=== PATIENT | female | born 1995 | race Caucasian/White ===

== ENCOUNTER 2017-04-02 20:14 | Emergency (ER) | payer MEDICAID ==
[2017-04-02 20:51] LABS: BASOPHILS % (AUTO) 0.3 %; HCT - HEMATOCRIT 43.6 % (37.0-47.0); HGB - HEMOGLOBIN 14.8 g/dL (12.0-16.0); LYMPHOCYTES # (AUTO) 0.5 10^3/uL (1.5-3.5); LYMPHOCYTES % (AUTO) 4.1 %; MEAN CORPUSCULAR HEMOGLOBIN 29.8 pg (27.0-31.0); MEAN CORPUSCULAR HGB CONC 33.9 g/dL (32.0-36.0); MEAN CORPUSCULAR VOLUME 88.1 fL (81.0-99.0); MONOCYTES # (AUTO) 0.3 10^3/uL (0.0-1.0); MONOCYTES % (AUTO) 3.1 %; NEUTROPHILS # (AUTO) 10.3 10^3/uL (1.5-6.6); NEUTROPHILS % (AUTO) 92.5 %; RED BLOOD COUNT 4.95 10^6/uL (4.20-5.40); RED CELL DISTRIBUTION WIDTH 13.3 % (12.0-15.0); UNCORRECTED WHITE BLOOD COUNT 11.2 x10^3/uL; WHITE BLOOD COUNT 11.2 x10^3/uL (4.8-10.8)
[2017-04-02 21:06] LABS: ALBUMIN/GLOBULIN RATIO 1.5 (1.0-2.2); BILIRUBIN,TOTAL 1.2 mg/dL (0.2-1.0); CALCIUM 9.7 mg/dL (8.5-10.3); CREATININE 0.9 mg/dL (0.4-1.0); TOTAL PROTEIN 7.4 g/dL (6.7-8.2)
[2017-04-02 21:29] LABS: BILIRUBIN,URINE NEGATIVE (NEGATIVE)
[2017-04-02 21:38] LABS: UA w/ MICROSCOPIC CHARGE YES
[2017-04-02 21:42] LABS: UR CULTURE IF IND NOT INDICATED
--- NOTE | 2017-04-02 21:57 | ED Physician Documentation ---
PD HPI NVD - Stated complaint Stated Complaint: VOMITTING - Chief complaint Chief Complaint: Abd Pain - History obtained from History obtained from: Patient - History of Present Illness Timing - onset: How many hours ago (few hours ago in early afternoon), Today Timing - duration: Hours Timing - details: Abrupt onset (vomited few times and some diarrhea) Associated symptoms: Abdominal pain (cramping), Loss of appetite. No: Fever, Chest pain, Hematemesis, Near syncope / syncope Contributing factors: No: Sick contact, Bad food, Travel, Recent antibiotics Improved by: No: Eating, Vomiting Worsened by: Eating Similar symptoms before: Has not had sx before Recently seen: Not recently seen Review of Systems Constitutional: reports: Myalgias. denies: Fever, Chills Nose: denies: Rhinorrhea / runny nose, Congestion Throat: denies: Sore throat Respiratory: denies: Cough GI: reports: Abdominal Pain (diffusely), Nausea, Vomiting, Diarrhea : denies: Dysuria, Frequency, Discharge, Missed period Skin: denies: Rash, Lesions Neurologic: reports: Generalized weakness. denies: Focal weakness, Numbness, Syncope, Altered mental status, Headache PD PAST MEDICAL HISTORY - Past Medical History Past Medical History: Yes Cardiovascular: None Endocrine/Autoimmune: None GI: None Psych: Depression, Anxiety, ADD/ADHD, Post traumatic stress disorder - Past Surgical History Past Surgical History: No - Present Medications Home Medications: Ambulatory Orders Medication Instructions Recorded Confirmed Aripiprazole [Abilify] 20 mg PO BID 04/02/17 04/02/17 Ondansetron Odt [Zofran] 4 mg TL Q6H PRN #10 tablet 04/02/17 buPROPion [Wellbutrin Sr] 100 mg PO DAILY 04/02/17 04/02/17 - Allergies Allergies/Adverse Reactions: Allergies Allergy/AdvReac Type Severity Reaction Status Date / Time No Known Drug Allergies Allergy Verified 04/02/17 21:31 - Social History Does the pt smoke?: No Smoking Status: Never smoker Does the pt drink ETOH?: No Does the pt have substance abuse?: No - Immunizations Immunizations are current?: Yes - POLST Patient has POLST: No PD ED PE NORMAL - Vitals Vital signs reviewed: Yes (Initiall BP is low.) - General General: Alert and oriented X 3, No acute distress, Well developed/nourished - HEENT HEENT: PERRL (nonictericnonicteric), Pharynx benign. No: Moist mucous membranes - Neck Neck: Supple, no meningeal sign, No adenopathy - Cardiac Cardiac: RRR, No murmur - Respiratory Respiratory: Clear bilaterally - Abdomen Abdomen: Normal bowel sounds, Soft, Non distended, No organomegaly, Other (some diffuse tenderness more upper abd without focality. No percussion nor rebound tenderness. ) Results - Vitals Vitals: Oxygen O2 Source Room air - Labs Labs: Laboratory Tests 04/02/17 04/02/17 04/02/17 20:41 20:41 21:20 WBC 11.2 H RBC 4.95 Hgb 14.8 Hct 43.6 MCV 88.1 MCH 29.8 MCHC 33.9 RDW 13.3 Plt Count 243 MPV 8.0 Neut # 10.3 H Lymph # 0.5 L [place] # 0.3 Eos # 0.0 Baso # 0.0 Absolute Nucleated RBC 0.00 Nucleated RBC % 0.0 Sodium 137 Potassium 4.0 Chloride 100 L Carbon Dioxide 24 Anion Gap 13.0 BUN 15 Creatinine 0.9 Estimated GFR (MDRD) 81 L Glucose 110 H Calcium 9.7 Total Bilirubin 1.2 H AST 22 ALT 19 Alkaline Phosphatase 40 L Total Protein 7.4 Albumin 4.4 Globulin 3.0 Albumin/Globulin Ratio 1.5 Lipase 42 Urine Color YELLOW Urine Clarity HAZY Urine pH 6.0 Ur Specific [place] >=1.030 H Urine Protein NEGATIVE Urine Glucose (UA) NEGATIVE Urine Ketones 40 H Urine Occult Blood NEGATIVE Urine Nitrite NEGATIVE Urine Bilirubin NEGATIVE Urine Urobilinogen 0.2 (NORMAL) Ur Leukocyte Esterase TRACE H Urine RBC 6-10 H Urine WBC 11-25 H Ur Squamous Epith Cells MANY Squamous H Urine Bacteria Few Ur Microscopic Review INDICATED Urine Culture Comments NOT INDICATED PD MEDICAL DECISION MAKING - ED course Complexity details: reviewed results, re-evaluated patient (improved with meds. Taking oral fluids here. BP and heart rate improved. ), considered differential (likely viral GE. Tests are okay at this time. Tender upper abd and not RLQ. ), d/w patient Departure - Departure Disposition: 01 Home, Self Care Clinical Impression: Nausea vomiting and diarrhea, Upper abdominal pain, Dehydration Condition: Stable Record reviewed to determine appropriate education?: Yes Instructions: ED Nausea Vomiting Follow-Up: KEN WILLS MD [Primary Care Provider] - Prescriptions: Ondansetron Odt [Zofran] 4 mg TL Q6H PRN #10 tablet PRN Reason: Nausea / Vomiting Comments: This is likely to be a viral stomach infection in these commonly last a day or so. Use ondansetron if needed for nausea. Tylenol if needed for pains. Small frequent fluids overnight and into tomorrow. Start bland foods such as rice breads or cereals tomorrow in progress as able. Recheck if not improved over the next day or 2. The upper belly pain is likely from vomiting and just irritation of the intestine and stomach. Recheck if this does not improve in a day or 2 or in particular if it gets worse or migrates to the lower right abdomen or any other concerns. Discharge Date/Time: 04/02/17 23:20
[2017-04-02] MEDS ORDERED: KETOROLAC 30 MG/ML VIAL ONE (22:18)
[2017-04-02] MEDS ORDERED: ONDANSETRON 4 MG/2 ML VIAL ONE (22:18)
[2017-04-02] MEDS: ONDANSETRON 4 MG/2 ML VIAL IVP STA (22:22)
[2017-04-02] MEDS: SODIUM CHLORIDE 0.9% 1,000 ML IV ONE (22:22)
[2017-04-02] MEDS: KETOROLAC 60 MG/2 ML VIAL IVP STA (22:22)
[2017-04-02] MEDS ORDERED: ONDANSETRON ODT 4 MG Prepack 2 TL ONE (22:50)
[2017-04-02 23:14] VITALS: BP 101/53
[2017-04-02] MEDS: ONDANSETRON ODT 4 MG Prepack 2 TL PRN (23:15)
== END 2017-04-02 23:20 | disposition home or self-care (01) ==
LOC: ED 20:14
DX: R11.2 Nausea with vomiting, unspecified (principal); R19.7 Diarrhea, unspecified; R10.10 Upper abdominal pain, unspecified; E86.0 Dehydration
CPT/HCPCS: 36415; 80053; 81001; 81003; 83690; 85025; 87086; 96374; 96375; 99284

== ENCOUNTER 2017-07-08 19:27 | Emergency (ER) | payer MEDICAID ==
[2017-07-08 19:34] VITALS: BP 123/68
--- NOTE | 2017-07-08 19:58 | ED Physician Documentation ---
PD HPI UPPER EXT INJURY - Stated complaint Stated Complaint: R HAND/WRIST INJ - Chief complaint Chief Complaint: Ext Problem - History obtained from History obtained from: Patient - History of Present Illness Location: Right, Hand Type of injury: Other (punched a light pole because she was angry) Where injury occurred: Street Timing - onset: How many hours ago (1) Timing - duration: Hours (1) Timing - details: Abrupt onset Pain level max: 5 Pain level now: 3 Improved by: Rest, Ice, Immobilization Worsened by: Moving, Palpating Associated symptoms: Swelling, Discolored (bruising). No: Weakness, Numbness, Tingling Contributing factors: No: Anticoagulated Similar symptoms before: Has not had sx before Recently seen: Not recently seen - Additonal information Additional information: patient is right handed Review of Systems : denies: Now EGA PD PAST MEDICAL HISTORY - Past Medical History Past Medical History: Yes Cardiovascular: None Endocrine/Autoimmune: None GI: None Psych: Depression, Anxiety, ADD/ADHD, Post traumatic stress disorder - Past Surgical History Past Surgical History: No - Present Medications Home Medications: Ambulatory Orders Medication Instructions Recorded Confirmed Aripiprazole [Abilify] 20 mg PO BID 04/02/17 07/08/17 Ondansetron Odt [Zofran] 4 mg TL Q6H PRN #10 tablet 04/02/17 07/08/17 buPROPion [Wellbutrin Sr] 100 mg PO DAILY 04/02/17 07/08/17 - Allergies Allergies/Adverse Reactions: Allergies Allergy/AdvReac Type Severity Reaction Status Date / Time No Known Drug Allergies Allergy Verified 07/08/17 19:33 - Social History Does the pt smoke?: No Smoking Status: Never smoker Does the pt drink ETOH?: No Does the pt have substance abuse?: No - Immunizations Immunizations are current?: Yes - POLST Patient has POLST: No PD ED PE NORMAL - Vitals Vital signs reviewed: Yes - General General: Alert and oriented X 3, No acute distress - HEENT HEENT: Other (dilated pupils) - Derm Derm: Warm and dry - Extremities Extremities: Other (R hand TTP over the 3rd MC. bruising and abrasion to the 3rd MCP joint. NVI. o/w normal exam of the hand and wrist. ) - Neuro Neuro: Alert and oriented X 3 - Psych Psych: Normal mood, Normal affect Results - Vitals Vitals: Vital Signs - 24 hr 07/08/17 19:31 Temperature 36.7 C Heart Rate 89 Respiratory 16 Rate Blood Pressure 123/68 O2 Saturation 96 Oxygen O2 Source Room air - Rads (name of study) R hand xray Radiology: Prelim report reviewed, EMP read contemporaneously, See rad report ( normal. no fracture) PD MEDICAL DECISION MAKING - ED course Complexity details: reviewed results, re-evaluated patient, considered differential, d/w patient ED course: Patient is a 21-year-old female who presents to the emergency department after she punched a light pole with her right hand. No acute findings on x-ray. Declines cleansing of the wound. Tetanus is up-to-date. Warnings of infection and instructions on wound care given at bedside. Will follow up with her doctor. Patient counseled regarding signs and symptoms for which I believe and urgent re-evaluation would be necessary. Patient with good understanding of and agreement to plan and is comfortable going home at this time This document was made in part using voice recognition software. While efforts are made to proofread this document, sound alike and grammatical errors may occur. Departure - Departure Disposition: 01 Home, Self Care Clinical Impression: Contusion of hand Qualifiers: Encounter type: initial encounter Laterality: right Qualified Code(s): S60.221A - Contusion of right hand, initial encounter Condition: Good Instructions: ED Contusion Hand Follow-Up: KEN WILLS MD [Primary Care Provider] - Within 1 week Comments: Return if you worsen. Your xrays are normal today. Discharge Date/Time: 07/08/17 20:32
--- NOTE | 2017-07-08 20:22 | XRAY Preliminary Report ---
Exam: XR HAND 3 VIEW RT IMPRESSION: Normal hand radiography. [facility] SITE ID: [id number]
--- NOTE | 2017-07-08 20:22 | XRAY Report ---
EXAM: RIGHT HAND RADIOGRAPHY EXAM DATE: 07/08/2017 08:16 PM. CLINICAL HISTORY: R hand injury s/p punching a light pole. COMPARISON: None. TECHNIQUE: 3 views. FINDINGS: Bones: Normal. No fractures or bone lesions. Joints: Normal. No subluxations. Soft Tissues: Normal. No soft tissue swelling. IMPRESSION: Normal hand radiography. [facility] Referring Provider Line: [phone] SITE ID: [id number]
== END 2017-07-08 20:32 | disposition home or self-care (01) ==
LOC: ED 19:27
DX: S60.221A Contusion of right hand, initial encounter (principal); S60.511A Abrasion of right hand, initial encounter; W22.09XA Striking against other stationary object, initial encounter; Y92.410 Unspecified street and highway as the place of occurrence of the external cause
CPT/HCPCS: 99282; 99283

== ENCOUNTER 2018-03-16 19:45 | Emergency (ER) | payer MEDICAID ==
[2018-03-16 20:19] LABS: BILIRUBIN,URINE NEGATIVE (NEGATIVE); GLUCOSE, URINE (UA) NEGATIVE (NEGATIVE); KETONES,URINE (UA) NEGATIVE (NEGATIVE); LEUKOCYTE ESTERASE, URINE SMALL (NEGATIVE); NITRITE,URINE NEGATIVE (NEGATIVE); OCCULT BLOOD,URINE TRACE-INTA (NEGATIVE); PROTEIN,URINE NEGATIVE (NEGATIVE); UROBILINOGEN,URINE 0.2 (NORMAL) E.U./dL (NORMAL)
[2018-03-16 20:21] LABS: CLARITY,URINE HAZY (CLEAR)
[2018-03-16 20:22] LABS: HCG UR QUAL NEGATIVE
[2018-03-16 20:24] LABS: BACTERIA,URINE Many /HPF (None Seen); SQUAMOUS EPITHELIAL CELL,UR FEW Squamous (<= Few)
[2018-03-16] MEDS ORDERED: PHENAZOPYRIDINE 100 MG TABLET PO STA (20:29)
[2018-03-16] MEDS ORDERED: SULFAMETH/TRIMETH DS 800/160 MG TABLET PO STA (20:29)
--- NOTE | 2018-03-16 20:32 | ED Physician Documentation ---
PD HPI FEMALE - Stated complaint Stated Complaint: ABD PX - Chief complaint Chief Complaint: Abd Pain - History obtained from History obtained from: Patient - History of Present Illness Timing - onset: How many weeks ago (1) Timing - details: Gradual onset, Still present Associated symptoms: Pelvic pain, Dysuria, Urinary frequency, Hematuria Similar symptoms before: Work up / diagnostics, Treatment Recently seen: Emergency Dept - Additional information Additional information: Patient is a 22 year old female presenting to the emergency department for dysuria, increased frequency and cloudy urine. patient was diagnosed with a uti last week and started on what sounds like keflex. patient's symptoms got better for a little while but then came back so she came in for evaluation. Review of Systems Ten Systems: 10 systems reviewed and negative Constitutional: denies: Fever, Chills : reports: Dysuria, Frequency PD PAST MEDICAL HISTORY - Past Medical History Cardiovascular: None Endocrine/Autoimmune: None GI: None Psych: Depression, Anxiety, ADD/ADHD, Post traumatic stress disorder - Past Surgical History Past Surgical History: No - Present Medications Home Medications: Ambulatory Orders Medication Instructions Recorded Confirmed Aripiprazole [Abilify] 20 mg PO BID 04/02/17 07/08/17 Ondansetron Odt [Zofran] 4 mg TL Q6H PRN #10 tablet 04/02/17 07/08/17 buPROPion [Wellbutrin Sr] 100 mg PO DAILY 04/02/17 07/08/17 Phenazopyridine HCl [Pyridium] 200 mg PO TID PRN #6 tablet 03/16/18 Sulfamethox/Trimeth 800/160 1 each PO BID #14 tablet 03/16/18 [Bactrim Ds 800/160] - Allergies Allergies/Adverse Reactions: Allergies Allergy/AdvReac Type Severity Reaction Status Date / Time No Known Drug Allergies Allergy Verified 03/16/18 20:06 - Social History Does the pt smoke?: No Smoking Status: Never smoker Does the pt drink ETOH?: No Does the pt have substance abuse?: No - Immunizations Immunizations are current?: Yes - POLST Patient has POLST: No PD ED PE NORMAL - Vitals Vital signs reviewed: Yes - General General: Alert and oriented X 3 - HEENT HEENT: Atraumatic - Cardiac Cardiac: RRR - Respiratory Respiratory: No respiratory distress - Abdomen Abdomen: Soft - Derm Derm: Normal color - Extremities Extremities: No deformity - Neuro Eye Opening: Spontaneous Results - Vitals Vitals: Vital Signs - 24 hr 03/16/18 20:06 Temperature 37.0 C Heart Rate 79 Respiratory 18 Rate Blood Pressure 122/76 O2 Saturation 99 Oxygen O2 Source Room air - Labs Labs: Laboratory Tests 03/16/18 20:00 Urine Color YELLOW Urine Clarity HAZY Urine pH 6.0 Ur Specific [place] >=1.030 H Urine Protein NEGATIVE Urine Glucose (UA) NEGATIVE Urine Ketones NEGATIVE Urine Occult Blood TRACE-INTA Urine Nitrite NEGATIVE Urine Bilirubin NEGATIVE Urine Urobilinogen 0.2 (NORMAL) Ur Leukocyte Esterase SMALL H Urine RBC 6-10 H Urine WBC >25 H Ur Squamous Epith Cells FEW Squamous Urine Bacteria Many H Ur Microscopic Review INDICATED Urine Culture Comments INDICATED Urine HCG, Qual NEGATIVE PD MEDICAL DECISION MAKING - ED course Complexity details: reviewed old records, reviewed results, re-evaluated patient, considered differential, d/w patient, d/w family ED course: Patient was seen and examined at bedside. urine was collected and consistent with urinary tract infection. Patient was started on bactrim. Patient required no further work up at this time and was stable for discharge with outpatient follow up. - Sepsis Event Vital Signs: Vital Signs - 24 hr 03/16/18 20:06 Temperature 37.0 C Heart Rate 79 Respiratory 18 Rate Blood Pressure 122/76 O2 Saturation 99 Oxygen O2 Source Room air Departure - Departure Disposition: 01 Home, Self Care Clinical Impression: Urinary tract infection Condition: Good Instructions: ED UTI Cystitis Female Follow-Up: primary,care provider [Other] Prescriptions: Phenazopyridine HCl [Pyridium] 200 mg PO TID PRN #6 tablet PRN Reason: dysuria Sulfamethox/Trimeth 800/160 [Bactrim Ds 800/160] 1 each PO BID #14 tablet Comments: Your symptoms today are being caused by a urinary tract infection. we are going to try another antibiotic. You will be called if this antibiotic will not work for the bacteria and a new one will be prescribed. you should increase you fluid intake as well during the infection stage.
[2018-03-16 20:39] VITALS: BP 120/74
== END 2018-03-16 20:37 | disposition home or self-care (01) ==
LOC: ED 19:45
DX: N39.0 Urinary tract infection, site not specified (principal)
CPT/HCPCS: 81001; 81025; 87086; 99283; A9270; 81003

== ENCOUNTER 2018-05-24 00:13 | Emergency (ER) | payer MEDICAID ==
[2018-05-24 00:23] VITALS: BP 119/75
--- NOTE | 2018-05-24 01:00 | ED Physician Documentation ---
History of Present Illness - Stated complaint Stated Complaint: JAW PAIN - Chief complaint Chief Complaint: Heent - History obtained from History obtained from: Patient - History of Present Illness Timing: Today (worse), How many years ago (2) Pain level max: 7 Pain level now: 0 - Additonal information Additional information: 22-year-old female with no past medical or surgical history here complaining of jaw pain which started 2 years ago after her molar tooth was pulled out. She had seen her dentist 3 months ago for cleaning but had forgotten to ask about the jaw. Patient stated The pain has been on and off the past 2 weeks and today the pain was worse. She has not taken medication. Patient states she likes chewing on gum.Denies any recent trauma in her mouth or jaw. Review of Systems Ten Systems: 10 systems reviewed and negative Constitutional: denies: Fever, Chills Ears: denies: Ear pain Nose: denies: Rhinorrhea / runny nose Throat: denies: Dental pain / toothache, Oral lesions / sores, Sore throat, Swollen tonsils Musculoskeletal: denies: Neck pain PD PAST MEDICAL HISTORY - Past Medical History Cardiovascular: None Endocrine/Autoimmune: None GI: None Psych: Depression, Anxiety, ADD/ADHD, Post traumatic stress disorder - Past Surgical History Past Surgical History: No - Present Medications Home Medications: Ambulatory Orders Medication Instructions Recorded Confirmed Aripiprazole [Abilify] 20 mg PO BID 04/02/17 07/08/17 Ondansetron Odt [Zofran] 4 mg TL Q6H PRN #10 tablet 04/02/17 07/08/17 buPROPion [Wellbutrin Sr] 100 mg PO DAILY 04/02/17 07/08/17 Phenazopyridine HCl [Pyridium] 200 mg PO TID PRN #6 tablet 03/16/18 Sulfamethox/Trimeth 800/160 1 each PO BID #14 tablet 03/16/18 [Bactrim Ds 800/160] - Allergies Allergies/Adverse Reactions: Allergies Allergy/AdvReac Type Severity Reaction Status Date / Time No Known Drug Allergies Allergy Verified 03/16/18 20:06 - Social History Does the pt smoke?: No Smoking Status: Never smoker Does the pt drink ETOH?: No Does the pt have substance abuse?: No - Immunizations Immunizations are current?: Yes - POLST Patient has POLST: No PD ED PE NORMAL - Vitals Vital signs reviewed: Yes - General General: Alert and oriented X 3, No acute distress, Well developed/nourished - HEENT HEENT: Atraumatic, Ears normal, Moist mucous membranes, Pharynx benign, Dentition benign, Other (TMJs intact but with a slight click with opening and closing. No tenderness to palpation. No erythema in the buccal mucosa.) - Neck Neck: Supple, no meningeal sign, No adenopathy - Cardiac Cardiac: RRR, No murmur - Respiratory Respiratory: No respiratory distress, Clear bilaterally - Abdomen Abdomen: Normal bowel sounds, Soft, Non tender, Non distended - Back Back: No CVA TTP - Derm Derm: Warm and dry - Extremities Extremities: No deformity - Neuro Neuro: Alert and oriented X 3 - Psych Psych: Normal mood, Normal affect Results - Vitals Vitals: Vital Signs - 24 hr 05/24/18 00:17 Temperature 36.8 C Heart Rate 85 Respiratory 18 Rate Blood Pressure 119/75 O2 Saturation 97 Oxygen O2 Source Room air - Labs Labs: Laboratory Tests 05/24/18 00:51 Ur Specific [place] 1.025 Urine HCG, Qual NEGATIVE PD MEDICAL DECISION MAKING - ED course Complexity details: re-evaluated patient ( patient informed of negative test and she expressed positive feeling about this. She was instructed to follow-up with her dentist and get a referral for an [facility]. She was instructed to avoid chewing gum and eating hard food.), considered differential (Dental caries, TMJ, overusage,), d/w patient Departure - Departure Disposition: Home, Self Care Clinical Impression: Chronic jaw pain TMJ arthralgia Qualifiers: Laterality: bilateral Qualified Code(s): M26.623 - Arthralgia of bilateral temporomandibular joint Condition: Stable Instructions: TMD Pain Relief Methods, ED TMJ Syndrome Comments: Call your dentist for reevaluation and referral to a specialist called [facility]MF. Avoid chewing gum and eating hard food. OTC Tylenol or Motrin for pain. If worse return to the emergency room.
[2018-05-24 01:11] LABS: HCG UR QUAL NEGATIVE
== END 2018-05-24 02:03 | disposition home or self-care (01) ==
LOC: ED 00:13
DX: M26.623 Arthralgia of bilateral temporomandibular joint (principal); G89.29 Other chronic pain
CPT/HCPCS: 81025; 99283

== ENCOUNTER 2018-06-28 19:07 | Emergency (ER) | payer MEDICAID ==
[2018-06-28] MEDS ORDERED: HYDROcod/ACETAM 5/325 MG TABLET PO STA (19:19)
--- NOTE | 2018-06-28 19:21 | ED Physician Documentation ---
PD HPI ABD PAIN - Stated complaint Stated Complaint: ABD PX - Chief complaint Chief Complaint: Abd Pain - History obtained from History obtained from: Patient - History of Present Illness Timing - onset: Other (She has several weeks of periumbilical pain that waxes and wanes. It is a little worse after eating. She had one episode of vomiting a few days ago but it was after a large meal. Her bowel movements have been normal. It is associated with urinary frequency but no dysuria. She feels like this is similar to a UTI she had a few months ago that resolved quickly with oral antibiotics. She denies fevers. No history of abdominal surgeries.) Review of Systems Constitutional: denies: Fever, Chills GI: reports: Abdominal Pain, Nausea, Vomiting. denies: Constipation, Diarrhea : reports: Frequency. denies: Dysuria PD PAST MEDICAL HISTORY - Past Medical History Past Medical History: No Cardiovascular: None Respiratory: None Neuro: None Endocrine/Autoimmune: None GI: None PATROL LADY: None : None HEENT: None Psych: Depression, Anxiety, ADD/ADHD, Post traumatic stress disorder Musculoskeletal: None Derm: None - Past Surgical History Past Surgical History: No - Present Medications Home Medications: Ambulatory Orders Medication Instructions Recorded Confirmed Aripiprazole [Abilify] 20 mg PO BID 04/02/17 07/08/17 Ondansetron Odt [Zofran] 4 mg TL Q6H PRN #10 tablet 04/02/17 07/08/17 buPROPion [Wellbutrin Sr] 100 mg PO DAILY 04/02/17 07/08/17 Phenazopyridine HCl [Pyridium] 200 mg PO TID PRN #6 tablet 03/16/18 Sulfamethox/Trimeth 800/160 1 each PO BID #14 tablet 03/16/18 [Bactrim Ds 800/160] Sulfamethoxazole/Trimethoprim 1 each PO BID #10 tablet 06/28/18 [Sulfamethoxazole-Tmp Ds Tablet] - Allergies Allergies/Adverse Reactions: Allergies Allergy/AdvReac Type Severity Reaction Status Date / Time No Known Drug Allergies Allergy Verified 06/28/18 19:11 - Social History Does the pt smoke?: No Smoking Status: Never smoker Does the pt drink ETOH?: No Does the pt have substance abuse?: No - Immunizations Immunizations are current?: Yes - POLST Patient has POLST: No PD ED PE NORMAL - Vitals Vital signs reviewed: Yes - General General: Alert and oriented X 3, No acute distress - Cardiac Cardiac: RRR, No murmur - Respiratory Respiratory: No respiratory distress, Clear bilaterally - Abdomen Abdomen: Normal bowel sounds, Soft, Other (Mild left-sided abdominal tenderness without surgical signs) - Back Back: No CVA TTP, No spinal TTP - Derm Derm: Normal color, Warm and dry - Extremities Extremities: No edema, No calf tenderness / cord - Neuro Neuro: Alert and oriented X 3, Normal speech Results - Vitals Vitals: Vital Signs - 24 hr 06/28/18 19:08 Temperature 36.0 C L Heart Rate 92 Respiratory 15 Rate Blood Pressure 101/81 H O2 Saturation 98 Oxygen O2 Source Room air - Labs Labs: Laboratory Tests 06/28/18 06/28/18 06/28/18 19:26 19:35 19:35 WBC 7.4 RBC 4.75 Hgb 14.1 Hct 42.5 MCV 89.5 MCH 29.7 MCHC 33.2 RDW 13.0 Plt Count 246 MPV 8.4 Neut # (Auto) 4.0 Lymph # (Auto) 2.7 [place] # (Auto) 0.5 Eos # (Auto) 0.1 Baso # (Auto) 0.1 Absolute Nucleated RBC 0.01 Nucleated RBC % 0.1 Sodium 138 Potassium 3.7 Chloride 104 Carbon Dioxide 26 Anion Gap 8.0 BUN 12 Creatinine 0.8 Estimated GFR (MDRD) 91 Glucose 96 Calcium 9.3 Total Bilirubin 0.4 AST 17 ALT 15 Alkaline Phosphatase 44 Total Protein 7.4 Albumin 4.1 Globulin 3.3 Albumin/Globulin Ratio 1.2 Lipase 33 Urine Color YELLOW Urine Clarity CLEAR Urine pH 6.0 Ur Specific [place] 1.025 Urine Protein NEGATIVE Urine Glucose (UA) NEGATIVE Urine Ketones NEGATIVE Urine Occult Blood NEGATIVE Urine Nitrite NEGATIVE Urine Bilirubin NEGATIVE Urine Urobilinogen 0.2 (NORMAL) Ur Leukocyte Esterase TRACE H Urine RBC 0-5 Urine WBC 4-5 Ur Squamous Epith Cells MOD Squamous H Urine Bacteria None Seen Ur Microscopic Review INDICATED Urine Culture Comments NOT INDICATED Urine HCG, Qual NEGATIVE PD MEDICAL DECISION MAKING - ED course ED course: 22-year-old with abdominal pain and urinary frequency. Previously diagnosed with similar symptoms as UTI and resolved quickly with antibiotics. She had a benign examination and a soft urine but her blood work was negative. We will trial antibiotics and close follow-up precautions were given. Departure - Departure Disposition: Home, Self Care Clinical Impression: Urinary tract infection Qualifiers: Urinary tract infection type: acute cystitis Hematuria presence: without hematuria Qualified Code(s): N30.00 - Acute cystitis without hematuria Abdominal pain Qualifiers: Abdominal location: generalized Qualified Code(s): R10.84 - Generalized abdominal pain Condition: Good Record reviewed to determine appropriate education?: Yes Instructions: ED Abdominal Pain Unkn Cause Prescriptions: Sulfamethoxazole/Trimethoprim [Sulfamethoxazole-Tmp Ds Tablet] 1 each PO BID #10 tablet Comments: Call your doctor to arrange a follow-up appointment, make the next available appointment. In the interim, return anytime if worse or if new symptoms develop.
[2018-06-28 19:33] LABS: BILIRUBIN,URINE NEGATIVE (NEGATIVE); GLUCOSE, URINE (UA) NEGATIVE (NEGATIVE); KETONES,URINE (UA) NEGATIVE (NEGATIVE); LEUKOCYTE ESTERASE, URINE TRACE (NEGATIVE); NITRITE,URINE NEGATIVE (NEGATIVE); OCCULT BLOOD,URINE NEGATIVE (NEGATIVE); PROTEIN,URINE NEGATIVE (NEGATIVE); UROBILINOGEN,URINE 0.2 (NORMAL) E.U./dL (NORMAL)
[2018-06-28 19:34] LABS: CLARITY,URINE CLEAR (CLEAR)
[2018-06-28 19:35] LABS: HCG UR QUAL NEGATIVE
[2018-06-28 19:42] LABS: BASOPHILS # (AUTO) 0.1 10^3/uL (0.0-0.1); EOSINOPHILS # (AUTO) 0.1 10^3/uL (0.0-0.7); EOSINOPHILS % (AUTO) 1.4 %; HGB - HEMOGLOBIN 14.1 g/dL (12.0-16.0); LYMPHOCYTES # (AUTO) 2.7 10^3/uL (1.5-3.5); LYMPHOCYTES % (AUTO) 36.4 %; MEAN CORPUSCULAR HEMOGLOBIN 29.7 pg (27.0-31.0); MEAN CORPUSCULAR HGB CONC 33.2 g/dL (32.0-36.0); MEAN CORPUSCULAR VOLUME 89.5 fL (81.0-99.0); MEAN PLATELET VOLUME 8.4 fL (7.9-10.8); MONOCYTES # (AUTO) 0.5 10^3/uL (0.0-1.0); MONOCYTES % (AUTO) 7.3 %; NEUTROPHILS % (AUTO) 53.9 %; PLT - PLATELET COUNT 246 10^3/uL (130-450); RED BLOOD COUNT 4.75 10^6/uL (4.20-5.40); WHITE BLOOD COUNT 7.4 x10^3/uL (4.8-10.8)
[2018-06-28 19:56] LABS: ALBUMIN 4.1 g/dL (3.2-5.5); ALBUMIN/GLOBULIN RATIO 1.2 (1.0-2.2); BILIRUBIN,TOTAL 0.4 mg/dL (0.2-1.0); CALCIUM 9.3 mg/dL (8.5-10.3); CREATININE 0.8 mg/dL (0.4-1.0); TOTAL PROTEIN 7.4 g/dL (6.7-8.2)
[2018-06-28 19:58] LABS: BACTERIA,URINE None Seen /HPF (None Seen); RBC,URINE 0-5 /HPF (0-5); SQUAMOUS EPITHELIAL CELL,UR MOD Squamous (<= Few)
[2018-06-28] MEDS ORDERED: SULFAMETH/TRIMETH DS 800/160 MG TABLET PO STA (20:20)
[2018-06-28 20:27] VITALS: BP 107/57
== END 2018-06-28 20:28 | disposition home or self-care (01) ==
LOC: ED 19:07
DX: N30.00 Acute cystitis without hematuria (principal); R10.84 Generalized abdominal pain
CPT/HCPCS: 36415; 80053; 81001; 81025; 83690; 85025; 99283; A9270; 81003; 87086

== ENCOUNTER 2018-07-01 06:44 | Emergency (ER) | payer MEDICAID ==
[2018-07-01 07:19] LABS: BILIRUBIN,URINE NEGATIVE (NEGATIVE); GLUCOSE, URINE (UA) NEGATIVE (NEGATIVE); KETONES,URINE (UA) NEGATIVE (NEGATIVE); LEUKOCYTE ESTERASE, URINE SMALL (NEGATIVE); NITRITE,URINE NEGATIVE (NEGATIVE); OCCULT BLOOD,URINE NEGATIVE (NEGATIVE); PROTEIN,URINE NEGATIVE (NEGATIVE); UROBILINOGEN,URINE 0.2 (NORMAL) E.U./dL (NORMAL)
[2018-07-01 07:24] LABS: CLARITY,URINE CLEAR (CLEAR); HCG UR QUAL NEGATIVE
[2018-07-01 07:41] LABS: BACTERIA,URINE Rare /HPF (None Seen); RBC,URINE 0-5 /HPF (0-5); SQUAMOUS EPITHELIAL CELL,UR MOD Squamous (<= Few)
--- NOTE | 2018-07-01 07:42 | ED Physician Documentation ---
PD HPI ABD PAIN - Stated complaint Stated Complaint: STOMACH PAIN - Chief complaint Chief Complaint: Abd Pain - History obtained from History obtained from: Patient - History of Present Illness Timing - onset: How many days ago (3) Timing - duration: Days (3) Timing - details: Gradual onset, Still present Quality: Sharp, Pain Location: Epigastric, Periumbilical Improved by: Laying still Worsened by: Eating, Position, Palpation Associated symptoms: Nausea, Vomiting. No: Diarrhea, Constipation, Dysuria, Chest pain, Dizzy, Near syncope / syncope Similar symptoms before: Diagnosis (UTI) Recently seen: Emergency Dept - Additional information Additional information: 22-year-old female with history of autism spectrum disorder and ADHD is a poor historian but relates a story of abdominal pain that has been undulating over the past 3 days. She states that on she vomited and following that she has developed intermittent abdominal pain. She states it is worse if she eats spicy food. She denies prior episodes of similar pain and at the same time indicates that when she has had this pain previously has been diagnosis urinary tract infection. Review of Systems Constitutional: denies: Fever, Myalgias Eyes: denies: Decreased vision Ears: denies: Ear pain Nose: denies: Congestion Throat: denies: Oral lesions / sores Cardiac: denies: Chest pain / pressure, Palpitations Respiratory: denies: Dyspnea, Cough GI: reports: Abdominal Pain, Nausea, Vomiting : denies: Dysuria, Frequency Skin: denies: Rash Musculoskeletal: denies: Neck pain, Back pain Neurologic: denies: Generalized weakness, Focal weakness, Numbness PD PAST MEDICAL HISTORY - Past Medical History Past Medical History: Yes Cardiovascular: None Respiratory: None Neuro: None Endocrine/Autoimmune: None GI: None [employer]GER [employer]: None : None HEENT: None Psych: Depression, Anxiety, ADD/ADHD, Post traumatic stress disorder Musculoskeletal: None Derm: None - Past Surgical History Past Surgical History: No - Present Medications Home Medications: Ambulatory Orders Medication Instructions Recorded Confirmed Aripiprazole [Abilify] 20 mg PO BID 04/02/17 07/08/17 Ondansetron Odt [Zofran] 4 mg TL Q6H PRN #10 tablet 04/02/17 07/08/17 buPROPion [Wellbutrin Sr] 100 mg PO DAILY 04/02/17 07/08/17 Phenazopyridine HCl [Pyridium] 200 mg PO TID PRN #6 tablet 03/16/18 Sulfamethox/Trimeth 800/160 1 each PO BID #14 tablet 03/16/18 [Bactrim Ds 800/160] Sulfamethoxazole/Trimethoprim 1 each PO BID #10 tablet 06/28/18 [Sulfamethoxazole-Tmp Ds Tablet] - Allergies Allergies/Adverse Reactions: Allergies Allergy/AdvReac Type Severity Reaction Status Date / Time No Known Drug Allergies Allergy Verified 07/01/18 06:52 - Social History Does the pt smoke?: No Smoking Status: Never smoker Does the pt drink ETOH?: No Does the pt have substance abuse?: No - Immunizations Immunizations are current?: Yes - POLST Patient has POLST: No PD ED PE NORMAL - Vitals Vital signs reviewed: Yes (normal ) - General General: No acute distress, Well developed/nourished - HEENT HEENT: Atraumatic, PERRL, EOMI - Neck Neck: Supple, no meningeal sign, No bony TTP - Cardiac Cardiac: RRR, No murmur - Respiratory Respiratory: No respiratory distress, Clear bilaterally - Abdomen Abdomen: Normal bowel sounds, Soft, Non distended, No organomegaly, Other (mild RUQ tenderness to palpation ) - Back Back: No CVA TTP, No spinal TTP - Derm Derm: Normal color, Warm and dry, No rash - Extremities Extremities: No deformity, No edema - Neuro Neuro: Alert and oriented X 3, neon sign erector 2-12 intact, No motor deficit, No sensory deficit, Normal speech Eye Opening: Spontaneous Motor: Obeys Commands Verbal: Oriented GCS Score: 15 - Psych Psych: Normal mood, Normal affect Results - Vitals Vitals: Vital Signs - 24 hr 07/01/18 06:50 Temperature 36.6 C Heart Rate 81 Respiratory 17 Rate Blood Pressure 125/66 O2 Saturation 96 Oxygen O2 Source Room air - Labs Labs: Laboratory Tests 07/01/18 07/01/18 07/01/18 07:10 07:49 07:49 WBC 5.5 RBC 4.76 Hgb 14.4 Hct 42.1 MCV 88.5 MCH 30.3 MCHC 34.2 RDW 13.1 Plt Count 231 MPV 8.1 Neut # (Auto) 3.1 Lymph # (Auto) 1.8 Gates # (Auto) 0.5 Eos # (Auto) 0.1 Baso # (Auto) 0.0 Absolute Nucleated RBC 0.01 Nucleated RBC % 0.1 Sodium 137 Potassium 3.6 Chloride 102 Carbon Dioxide 23 Anion Gap 12.0 BUN 13 Creatinine 0.9 Estimated GFR (MDRD) 80 L Glucose 102 H Calcium 9.3 Total Bilirubin 0.5 AST 19 ALT 14 Alkaline Phosphatase 41 L Total Protein 7.4 Albumin 4.4 Globulin 3.0 Albumin/Globulin Ratio 1.5 Lipase 32 Urine Color YELLOW Urine Clarity CLEAR Urine pH 6.0 Ur Specific [place] 1.015 Urine Protein NEGATIVE Urine Glucose (UA) NEGATIVE Urine Ketones NEGATIVE Urine Occult Blood NEGATIVE Urine Nitrite NEGATIVE Urine Bilirubin NEGATIVE Urine Urobilinogen 0.2 (NORMAL) Ur Leukocyte Esterase SMALL H Urine RBC 0-5 Urine WBC 4-5 Ur Squamous Epith Cells MOD Squamous H Urine Bacteria Rare Ur Microscopic Review INDICATED Urine Culture Comments NOT INDICATED Urine HCG, Qual NEGATIVE - Rads (name of study) GB ultrasound Radiology: Prelim report reviewed (Impression: 1. No cholelithiasis or cholecystitis. No hydronephrosis or renal calculus in the right kidney.), EMP read indepedently, See rad report PD MEDICAL DECISION MAKING - ED course Complexity details: considered differential, d/w patient ED course: 22-year-old female with epigastric abdominal pain has a nonfocal examination with the exception of some mild right upper quadrant tenderness on initial evaluation. Her symptoms resolved here in the emergency department she has a negative workup. She is a poor historian and unable to give specific details as to clues about underlying etiology. She has no symptoms now. Departure - Departure Disposition: 01 Home, Self Care Clinical Impression: Upper abdominal pain Condition: Stable Instructions: ED Abdominal Pain Unkn Cause Follow-Up: Hang Lopez PA-C [Primary Care Provider] -
[2018-07-01 07:56] LABS: BASOPHILS % (AUTO) 0.7 %; EOSINOPHILS # (AUTO) 0.1 10^3/uL (0.0-0.7); HGB - HEMOGLOBIN 14.4 g/dL (12.0-16.0); LYMPHOCYTES # (AUTO) 1.8 10^3/uL (1.5-3.5); LYMPHOCYTES % (AUTO) 33.7 %; MEAN CORPUSCULAR HEMOGLOBIN 30.3 pg (27.0-31.0); MEAN CORPUSCULAR HGB CONC 34.2 g/dL (32.0-36.0); MEAN CORPUSCULAR VOLUME 88.5 fL (81.0-99.0); MEAN PLATELET VOLUME 8.1 fL (7.9-10.8); MONOCYTES # (AUTO) 0.5 10^3/uL (0.0-1.0); MONOCYTES % (AUTO) 8.6 %; NEUTROPHILS # (AUTO) 3.1 10^3/uL (1.5-6.6); PLT - PLATELET COUNT 231 10^3/uL (130-450); RED BLOOD COUNT 4.76 10^6/uL (4.20-5.40); RED CELL DISTRIBUTION WIDTH 13.1 % (12.0-15.0); WHITE BLOOD COUNT 5.5 x10^3/uL (4.8-10.8)
[2018-07-01 08:13] LABS: ALBUMIN 4.4 g/dL (3.2-5.5); ALBUMIN/GLOBULIN RATIO 1.5 (1.0-2.2); BILIRUBIN,TOTAL 0.5 mg/dL (0.2-1.0); CALCIUM 9.3 mg/dL (8.5-10.3); CREATININE 0.9 mg/dL (0.4-1.0); TOTAL PROTEIN 7.4 g/dL (6.7-8.2)
--- NOTE | 2018-07-01 09:03 | Ultrasound Report ---
Reason: RUQ pain in episodes X 3 d Procedure Date: 07/01/2018 Accession Number: [id number] / [id number] Procedure: US - Abdomen Limited CPT Code: FULL RESULT: EXAM: ABDOMEN ULTRASOUND LIMITED, RUQ EXAM DATE: 07/01/2018 08:50 AM. CLINICAL HISTORY: RUQ pain in episodes X 3 d. COMPARISON: None. TECHNIQUE: Real-time scanning was performed with static images obtained. FINDINGS: Liver: Normal in size and echotexture. 15.1 cm. Main portal vein flow: Hepatopetal. Gallbladder: Normal. No stones, wall thickening, or sonographic Garza's sign. Biliary System: CBD measures 3 mm. No intrahepatic or extrahepatic ductal dilatation. Other: The right kidney measures up to 10.5 cm in length. No hydronephrosis. IMPRESSION: 1. No cholelithiasis or cholecystitis. 2. No hydronephrosis or renal calculus in the right kidney. [facility]
[2018-07-01 10:33] VITALS: BP 138/90
== END 2018-07-01 09:52 | disposition home or self-care (01) ==
LOC: ED 06:44
DX: R10.11 Right upper quadrant pain (principal); F84.0 Autistic disorder
CPT/HCPCS: 36415; 76705; 80053; 81001; 81003; 81025; 83690; 85025; 87086; 99283

== ENCOUNTER 2018-08-20 15:02 | Emergency (ER) | payer OTHER, MEDICAID ==
[2018-08-20 15:10] VITALS: BP 131/78
[2018-08-20] MEDS ORDERED: AZITHROMYCIN 250 MG TABLET PO STA (15:53)
[2018-08-20] MEDS ORDERED: metroNIDAZOLE 250 MG TABLET PO STA (15:54)
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
[2018-08-20 16:49] LABS: HCG,QUALITATIVE BLOOD NEGATIVE
[2018-08-21 12:47] LABS: HEPATITIS C ANTIBODY NON-REACTIVE (NON-REACTIVE)
[2018-08-21 14:21] LABS: HIV AG/AB 4TH GEN NON-REACTIVE (NON-REACTIVE)
== END 2018-08-20 18:55 | disposition home or self-care (01) ==
LOC: ED 15:02
DX: Z04.41 Encounter for examination and observation following alleged adult rape (principal); R03.0 Elevated blood-pressure reading, without diagnosis of hypertension
CPT/HCPCS: 0133C; 36415; 84703; 86317; 86803; 87389; 99283; A9270

== ENCOUNTER 2018-12-02 20:55 | Emergency (ER) | payer MEDICAID, OTHER ==
[2018-12-02 21:03] VITALS: BP 123/70
--- NOTE | 2018-12-02 21:08 | ED Physician Documentation ---
PD HPI FEMALE - Stated complaint Stated Complaint: FEM - Chief complaint Chief Complaint: UTI - History obtained from History obtained from: Patient PD PAST MEDICAL HISTORY - Past Medical History Cardiovascular: None Respiratory: None Neuro: None Endocrine/Autoimmune: None GI: None [employer] INSURANCE SALES AGENT: None : None HEENT: None Psych: Depression, Anxiety, ADD/ADHD, Post traumatic stress disorder Musculoskeletal: None Derm: None - Past Surgical History Past Surgical History: No - Present Medications Home Medications: Ambulatory Orders Medication Instructions Recorded Confirmed Aripiprazole [Abilify] 20 mg PO BID 04/02/17 12/02/18 buPROPion [Wellbutrin Sr] 100 mg PO DAILY 04/02/17 12/02/18 - Allergies Allergies/Adverse Reactions: Allergies Allergy/AdvReac Type Severity Reaction Status Date / Time No Known Drug Allergies Allergy Verified 12/02/18 21:03 - Social History Does the pt smoke?: No Smoking Status: Never smoker Does the pt drink ETOH?: No Does the pt have substance abuse?: No - Immunizations Immunizations are current?: Yes - POLST Patient has POLST: No Results - Vitals Vitals: Vital Signs - 24 hr 12/02/18 20:58 Temperature 36.4 C L Heart Rate 91 Respiratory 16 Rate Blood Pressure 123/70 O2 Saturation 99 Oxygen O2 Source Room air
== END 2018-12-02 21:11 | disposition left against medical advice (07) ==
LOC: ED 20:55
DX: Z53.21 Procedure and treatment not carried out due to patient leaving prior to being seen by health care provider (principal)

== ENCOUNTER 2019-09-11 10:36 | Outpatient (CLI) | payer MEDICAID ==
--- NOTE | 2019-09-12 01:23 | XRAY Report ---
Reason: LEFT FOOT PAIN Procedure Date: 09/11/2019 Accession Number: [id number] / [id number] Procedure: XRN - Foot 3 View LT CPT Code: Final Report FULL RESULT: EXAM: LEFT FOOT RADIOGRAPHY EXAM DATE: 09/11/2019 10:52 AM. CLINICAL HISTORY: LEFT FOOT PAIN. COMPARISON: None. TECHNIQUE: 3 views. FINDINGS: Bones: No acute fractures or suspicious bone lesions. Joints: No subluxations. Soft Tissues: Unremarkable. IMPRESSION: No acute radiographic abnormalities. RADIA
== END 2019-09-11 10:37 | disposition home or self-care (01) ==
LOC: DI.N 10:36
PROVIDERS: ATTEND Family Medicine
DX: M79.672 Pain in left foot (principal)

== ENCOUNTER 2019-10-27 08:00 | Outpatient (CLI) | payer MEDICAID ==
[2019-10-27 18:07] LABS: BASOPHILS # (AUTO) 0.1 10^3/uL (0.0-0.1); BASOPHILS % (AUTO) 0.8 %; EOSINOPHILS # (AUTO) 0.1 10^3/uL (0.0-0.7); EOSINOPHILS % (AUTO) 1.8 %; HGB - HEMOGLOBIN 14.2 g/dL (12.0-16.0); LYMPHOCYTES # (AUTO) 2.7 10^3/uL (1.5-3.5); MEAN CORPUSCULAR HGB CONC 31.2 g/dL (32.0-36.0); MEAN CORPUSCULAR VOLUME 89.6 fL (81.0-99.0); MONOCYTES # (AUTO) 0.5 10^3/uL (0.0-1.0); MONOCYTES % (AUTO) 7.4 %; NEUTROPHILS # (AUTO) 3.1 10^3/uL (1.5-6.6); NEUTROPHILS % (AUTO) 47.7 %; PLT - PLATELET COUNT 257 10^3/uL (130-450); RED BLOOD COUNT 5.08 10^6/uL (4.20-5.40); RED CELL DISTRIBUTION WIDTH 13.7 % (12.0-15.0); WHITE BLOOD COUNT 6.5 x10^3/uL (4.8-10.8)
[2019-10-27 18:28] LABS: ALBUMIN/GLOBULIN RATIO 1.7 (1.0-2.2); BILIRUBIN,TOTAL 0.9 mg/dL (0.2-1.0); CALCIUM 9.8 mg/dL (8.5-10.3); CREATININE 0.6 mg/dL (0.4-1.0); TOTAL PROTEIN 7.9 g/dL (6.7-8.2)
[2019-10-27 18:33] LABS: PARTIAL THROMBOPLASTIN TIME 26.8 secs (24.9-33.3)
[2019-10-27 18:48] LABS: INR 1.1 (0.8-1.2); PT - PROTHROMBIN TIME 12.1 secs (9.9-12.6)
== END 2019-10-27 23:59 | disposition home or self-care (01) ==
LOC: LAB.WCP 08:00
PROVIDERS: ATTEND Physician Assistant Medical
DX: R23.8 Other skin changes (principal)
CPT/HCPCS: 36415; 80053; 82728; 83540; 84466; 85025; 85610; 85730

== ENCOUNTER 2021-05-24 13:05 | Outpatient (CLI) | payer MEDICAID ==
[2021-05-24 18:21] LABS: BASOPHILS # (AUTO) 0.1 10^3/uL (0.0-0.1); BASOPHILS % (AUTO) 0.8 %; EOSINOPHILS # (AUTO) 0.1 10^3/uL (0.0-0.7); EOSINOPHILS % (AUTO) 1.4 %; HCT - HEMATOCRIT 45.7 % (37.0-47.0); HGB - HEMOGLOBIN 15.1 g/dL (12.0-16.0); LYMPHOCYTES # (AUTO) 2.2 10^3/uL (1.5-3.5); LYMPHOCYTES % (AUTO) 28.7 %; MEAN CORPUSCULAR HEMOGLOBIN 30.4 pg (27.0-31.0); MEAN CORPUSCULAR VOLUME 92.1 fL (81.0-99.0); MEAN PLATELET VOLUME 10.8 fL (7.9-10.8); MONOCYTES # (AUTO) 0.6 10^3/uL (0.0-1.0); MONOCYTES % (AUTO) 7.9 %; NEUTROPHILS # (AUTO) 4.8 10^3/uL (1.5-6.6); NEUTROPHILS % (AUTO) 61.1 %; PLT - PLATELET COUNT 259 10^3/uL (130-450); RED BLOOD COUNT 4.96 10^6/uL (4.20-5.40); RED CELL DISTRIBUTION WIDTH 12.8 % (12.0-15.0); WHITE BLOOD COUNT 7.8 x10^3/uL (4.8-10.8)
[2021-05-24 18:34] LABS: ALBUMIN 5.1 g/dL (3.2-5.5); ALBUMIN/GLOBULIN RATIO 1.9 (1.0-2.2); BILIRUBIN,TOTAL 1.1 mg/dL (0.2-1.0); CREATININE 0.6 mg/dL (0.4-1.0); POTASSIUM 3.8 mmol/L (3.5-5.0); TOTAL PROTEIN 7.8 g/dL (6.7-8.2)
[2021-05-24 18:58] LABS: BILIRUBIN,URINE NEGATIVE (NEGATIVE); GLUCOSE, URINE (UA) NEGATIVE (NEGATIVE); KETONES,URINE (UA) NEGATIVE (NEGATIVE); LEUKOCYTE ESTERASE, URINE NEGATIVE (NEGATIVE); NITRITE,URINE NEGATIVE (NEGATIVE); OCCULT BLOOD,URINE NEGATIVE (NEGATIVE); PH,URINE 5.5 PH (5.0-7.5); PROTEIN,URINE NEGATIVE (NEGATIVE); UROBILINOGEN,URINE 0.2 (NORMAL) E.U./dL (NORMAL)
[2021-05-24 19:00] LABS: CLARITY,URINE CLEAR (CLEAR)
[2021-05-24 19:11] LABS: HCG,QUALITATIVE BLOOD NEGATIVE
[2021-05-24 20:11] LABS: BACTERIA,URINE Few /HPF (None Seen); RBC,URINE 0-5 /HPF (0-5); SQUAMOUS EPITHELIAL CELL,UR FEW Squamous (<= Few); WBC,URINE 0-3 /HPF (0-5)
== END 2021-05-24 13:06 | disposition home or self-care (01) ==
LOC: LAB.N 13:05
PROVIDERS: ATTEND Nurse Practitioner
DX: R10.11 Right upper quadrant pain (principal); R10.31 Right lower quadrant pain
CPT/HCPCS: 36415; 80053; 81001; 82150; 83690; 84703; 85025; 87086

== ENCOUNTER 2022-12-18 08:00 | Outpatient (CLI) | payer MEDICARE, MEDICAID | END 2022-12-18 23:59 | disposition home or self-care (01) | LOC: LAB.N 08:00 | PROVIDERS: ATTEND Physician Assistant Medical | DX: R35.0 Frequency of micturition (principal) | CPT/HCPCS: 87086 ==